=== PATIENT | female | born 2000 ===

== ENCOUNTER 2025-02-07 14:00 | Day surgery (SDC) | payer OTHER ==
[2025-01-25 10:08] VITALS: BP 101/74
[2025-01-25 10:49] LABS: URINE APPEARANCE Cloudy; URINE BILIRRUBIN Negative (NEGATIVE); URINE BLOOD Moderate; URINE COLOR Yellow; URINE GLUCOSE Negative (NEGATIVE); URINE LEUKOCYTE Negative; URINE NITRATE Negative; URINE PROTEIN Negative (NEGATIVE); URINE UROBILINOGEN 0.2 E.U./dl
[2025-01-25 10:52] LABS: URINE EPITHELIAL CELLS 95.6 uL (0.0-38.8); URINE RBC 10.9 uL (0.0-20.8); URINE WBC 15.2 uL (0.0-23.2)
[2025-01-25 10:53] LABS: URINE CAST 0.14 uL (0.0-1.40); URINE KETONE 40 (NEGATIVE)
[2025-01-25 10:59] LABS: BASO % 1.1 % (0.1-1.2); EOS # 0.15 (0.04-0.54); EOS % 2.3 % (0.7-7.0); LYMPH # 2.85 (1.18-3.74); LYMPH % 43.0 % (19.3-53.1); MEAN PLATELET VOLUME 8.90 fl (9.4-12.4); MONO # 0.57 (0.24-0.82); MONO % 8.6 % (4.7-12.5); NEUT # 2.98 (1.56-6.13); NEUT % 44.8 % (34.0-71.1); RED CELL DISTRIBUTION WIDTH 12.6 % (11.6-14.4)
[2025-01-25 11:09] LABS: INR 1.02
[2025-01-25 11:24] LABS: ALT/SGPT 14.0 U/L (12-78); AST/SGOT 12.0 U/L (15-37); BILIRUBIN TOTAL 0.68 mg/dL (0.3-1.2); BUN CREA RATIO 20.0 (7.0-25.0); CREATININE SERUM 0.66 mg/dL (0.55-1.02); GFR 110.03; GLOBULINA 3.2 G/DL (2.4-3.5); GLUCOSE FASTING 79.0 mg/dL (65-100); OSMOLALITY SERUM 284.0 MOSM/KG (275-295)
[~2025-02-07] VITALS: Ht 162.6 cm; Wt 63.5 kg
[2025-02-07] MEDS ORDERED: POVIDONE-IODINE 118 ML BOTT TOP ONE (14:45)
== END 2025-02-07 21:25 | disposition home or self-care (01) ==
LOC: CIR.AMB 14:00
PROVIDERS: ATTEND Student in an Organized Health Care Education/Training Program
DX: N87.1 Moderate cervical dysplasia (principal); N72 Inflammatory disease of cervix uteri